=== PATIENT | female | born 1995 | race Caucasian/White ===

== ENCOUNTER 2019-03-03 09:03 | Emergency (ER) | payer OTHER, MEDICAID ==
--- NOTE | 2019-03-03 10:26 | RAD ---
CHEST TWO VIEWS: INDICATIONS: Dyspnea. Congestion. FINDINGS: The lungs are clear. No effusion or pneumothorax. The cardiac silhouette is of normal size. No acu te osseous abnormality. IMPRESSION: No focal consolidation. POS: [id number]
== END 2019-03-03 10:25 | disposition home or self-care (01) ==
LOC: ERS 09:03
DX: J06.9 Acute upper respiratory infection, unspecified (principal); F32.9 Major depressive disorder, single episode, unspecified; F90.9 Attention-deficit hyperactivity disorder, unspecified type; Z79.899 Other long term (current) drug therapy
CPT/HCPCS: 71046

== ENCOUNTER 2020-08-07 11:25 | Emergency (ER) | payer OTHER, MEDICAID ==
[2020-08-07] MEDS ORDERED: Fentanyl 100 MCG/2 ML VIAL ONE (12:13)
[2020-08-07 22:49] LABS: SARS-CoV-2 MS2 Positive; SARS-CoV-2 N Gene Negative; SARS-CoV-2 S Gene Negative; SARS-CoV-2 by NAA Not Detected (NotDetected); SARS-CoV-2 orf1ab Negative
== END 2020-08-07 12:15 | disposition home or self-care (01) ==
LOC: ERS 11:25
DX: Z20.828 Contact with and (suspected) exposure to other viral communicable diseases (principal); F32.9 Major depressive disorder, single episode, unspecified; F90.9 Attention-deficit hyperactivity disorder, unspecified type; G80.9 Cerebral palsy, unspecified
CPT/HCPCS: 87635; 99283; J3010; U0003

== ENCOUNTER 2020-10-04 12:34 | Emergency (ER) | payer OTHER, MEDICAID ==
[2020-10-04 17:26] LABS: SARS-CoV-2 MS2 Positive; SARS-CoV-2 N Gene Negative; SARS-CoV-2 S Gene Negative; SARS-CoV-2 by NAA Not Detected (NotDetected); SARS-CoV-2 orf1ab Negative
== END 2020-10-04 13:20 | disposition home or self-care (01) ==
LOC: ERS 12:34
DX: Z20.822 Contact with and (suspected) exposure to COVID-19 (principal)
CPT/HCPCS: 87635; 99283; U0003; U0005

== ENCOUNTER 2025-05-24 13:20 | Outpatient (CLI) | payer MEDICAID, MEDICARE | END 2025-05-24 13:21 | disposition home or self-care (01) | LOC: BICRAD 13:20 | PROVIDERS: ATTEND Family Medicine | DX: M54.50 Low back pain, unspecified (principal) | CPT/HCPCS: 72100 ==